=== PATIENT | male | born 1995 | race Caucasian/White ===

== ENCOUNTER 2021-01-14 17:47 | Emergency (ER) | payer MEDICAID, SELFPAY ==
[2021-01-14 18:00] VITALS: PULSE 103; RESP 16; TEMP 36.9; O2SAT 98; BMI 46.0
--- NOTE | 2021-01-14 18:08 | XRR_ITS ---
PROCEDURE INFORMATION: Exam: XR Right Knee Exam date and time: 01/14/2021 6:08 PM Age: 26 years old Clinical indication: Pain; Knee; Right; Additional info: Pain, swelling TECHNIQUE: Imaging protocol: XR Right knee. Views: 3 views. COMPARISON: No relevant prior studies available. FINDINGS: Bones/joints: Normal. No fracture or dislocation. Soft tissues: Normal. XR/XR knee RT 3V* [id number] IMPRESSION: No acute finding. Radiation Dose CTDIVOL = (mGy): DLP = (mGy-cm)
--- NOTE | 2021-01-14 18:08 | USR_ITS ---
PROCEDURE INFORMATION: Exam: US Duplex Right Lower Extremity Veins, Limited Exam date and time: 01/14/2021 6:08 PM Age: 26 years old Clinical indication: Pain; Leg, lower; Right; Additional info: Pain, swelling TECHNIQUE: Imaging protocol: Real-time Duplex ultrasound of the Right Lower Extremity with 2-D norris scale, color Doppler flow and spectral waveform analysis with image documentation. Limited exam was focused on the right lower extremity veins. COMPARISON: CR (LOW EXM, ) 01/14/2021 6:14 PM FINDINGS: Right deep veins: Unremarkable. The common femoral, femoral, proximal profunda femoral and popliteal veins are patent without thrombus. Normal Doppler waveforms. Normal compressibility and/or augmentation response. Right superficial veins: Unremarkable. Saphenofemoral junction is patent without thrombus. Soft tissues: Unremarkable. US/[place] [id number] IMPRESSION: No evidence of deep vein thrombosis. Radiation Dose CTDIVOL = (mGy): DLP = (mGy-cm)
[2021-01-14 20:00] VITALS: PULSE 100
--- NOTE | 2021-01-14 20:52 | W.ED.EXTPRO ---
HPI - Extremity Problem General: Chief complaint: Extremity Injury, Lower Stated complaint: R KNEE PAIN Time Seen by Provider: 01/14/21 20:30 History of Present Illness: HPI Narrative: 26-year-old male patient comes in today with complaints of right knee pain. Patient reports that about 2 weeks ago he was hit in the right knee by a forklift. Patient reports he had pain for a short while seem to have gotten better but then today started having more serious pain. Patient was concerned he may be developing a blood clot or have other significant injury. Patient appears well. No obvious swelling or redness is noted to the knee. Patient is guarded with extension of the knee due to discomfort. Review of Systems General: Reports: 10 or more systems reviewed and unremarkable except in HPI and below Musc: Reports: other (Right knee injury.) Physical Exam Const: COMMON NORMALS: no acute distress and patient oriented x3 GENERAL APPEARANCE: cooperative HENMT: COMMON NORMALS: normocephalic HEAD & SCALP: normal to inspection and normocephalic MOUTH: Normal oral and palatal mucosa present Eye: GENERAL EYE: appearance normal, both eyes and all related structures Neck/C-Spine: COMMON NORMALS: full ROM Chest: COMMONS NORMALS: normal inspection of the chest Resp: COMMON NORMALS: normal respiratory effort EFFORT & INSPECTION: Yes able to speak in complete sentences Cardio: COMMON NORMALS: regular rate and regular rhythm RATE: regular rate RHYTHM: regular rhythm GI: COMMON NORMALS: non-tender Back/Pelvis: COMMON NORMALS: thoracic and lumbar spine normal to inspection Extremity: NARRATIVE EXTREMITY EXAM: Tenderness is noted along the joint line of the lateral right knee. Minimal to no swelling is noted. Patient is guarded with any movement. No deformity is noted. Neuro: COMMON NORMALS: patient oriented x3 and moves all extremities Psych: COMMON NORMALS: mental status grossly normal and cooperative Skin: COMMON NORMALS: no rashes or lesions noted GENERAL SKIN EXAM: no rashes or lesions noted Course Vital Signs: Vital signs: Vital Signs Temperature 98.5 F 01/14/21 18:00 Pulse Rate 103 H 01/14/21 18:00 Respiratory Rate 16 01/14/21 18:00 Pulse Oximetry 98 01/14/21 18:00 MDM - Extremity (Nontraumatic) MDM Narrative: Medical decision making narrative: 26-year-old male comes in for evaluation of right knee injury. Patient is very tender to the distal aspect of the joint line on the lateral side of the right knee. Patient has decreased range of motion of the knee due to pain. No obvious swelling is noted. Distal pulses and sensation are intact. Differential diagnosis includes but not limited to joint effusion, fracture, meniscal injury. X-ray was negative for any fracture or dislocation. Recommended patient be followed by orthopedics for further evaluation of injury. We will put patient on some steroids to help with inflammation as this may just be an inflammatory response to his injury. I suspect though patient may have a meniscal injury although this cannot be ruled out without further imaging. We will start patient on prednisone 20 mg twice a day for 5 days, diclofenac for pain and inflammation, and hydrocodone 7 tablets for breakthrough pain. Review of the record indicated no recent prescriptions for hydrocodone. Patient reported understanding and agreed to plan. Case management was requested to assist with orthopedic follow-up. Discharge Plan Discharge Patient Disposition: Home Clinical Impression: Injury of right knee Qualifiers: Encounter type: initial encounter Qualified Code(s): S89.91XA - Unspecified injury of right lower leg, initial encounter Condition: Stable Prescriptions: New hydrocodone-acetaminophen 5-325 mg tablet 1 tab PO Q6H PRN (Reason: pain) Qty: 7 RF: 0 prednisone 20 mg tablet 20 mg PO BID 5 Days Qty: 10 RF: 0 diclofenac sodium 75 mg tablet,delayed release (DR/EC) 75 mg PO BID Qty: 10 RF: 0 Discharge Orders: Discharge ED (Routine); Ordered 01/14/21 Ordered By: Tejinder Farrell Discharge Diet: Usual diet Discharge Activity: Increase activity as tolerated Patient Instructions: Knee Pain (ED), Opioid Safety Activity Restrictions/Additional Instructions: Activity as tolerated. Gentle stretching and range of motion exercises. Use ice to the area for comfort. Drink plenty of water with medication. Follow-up with primary care for further instruction. Case management will contact you regarding follow-up appointment with orthopedics for further evaluation. 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
[2021-01-14] MEDS: predniSONE 20 mg Tablet 60 MG PO (21:05)
[2021-01-14] MEDS: HYDROcodone-acetaminophen 7.5-325 mg Tablet 1 TAB PO (21:05)
[2021-01-14 21:24] VITALS: BP 153/99; PULSE 103; RESP 24; O2SAT 95
--- NOTE | 2021-01-15 09:10 | DCPLANNER ---
senior online marketing manager had message to schedule a follow up appointment for patient with ortho. senior online marketing manager called the ortho clinic, spoke with Xin, gave clinic patients information. senior online marketing manager was told that patients information will be printed and reviewed. Clinic will call patient with appointment information.
--- NOTE | 2021-01-20 14:00 | DCPLANNER ---
Patient had a follow up appointment scheduled for 01.20.[address] Naranjo at [facility] - patient did attend appointment.
== END 2021-01-14 21:10 | disposition home or self-care (01) ==
PROVIDERS: Emergency Provider Nurse Practitioner Family
DX: S89.91XA Unspecified injury of right lower leg, initial encounter (principal); W24.0XXA Contact with lifting devices, not elsewhere classified, initial encounter
CPT/HCPCS: 73562; 93971; 99283; J7512

== ENCOUNTER → 2021-01-20 09:22 | Outpatient (BNVA) | payer MEDICAID, SELFPAY | PROVIDERS: Referring Provider Nurse Practitioner Family; Visit Provider Specialist | DX: S89.91XA Unspecified injury of right lower leg, initial encounter (principal); X58.XXXA Exposure to other specified factors, initial encounter | CPT/HCPCS: 73560; 73565 ==

== ENCOUNTER → 2021-11-08 11:48 | Outpatient (BNVA) | payer MEDICAID, SELFPAY | PROVIDERS: Visit Provider Nurse Practitioner | DX: I10 Essential (primary) hypertension (principal); M10.9 Gout, unspecified; F32.A Depression, unspecified | CPT/HCPCS: 80053; 80061; 84439; 84443; 84481; 84550; 85025 ==

== ENCOUNTER → 2021-12-27 14:45 | Outpatient (BNVA) | payer MEDICAID, SELFPAY | PROVIDERS: Visit Provider Nurse Practitioner | DX: F32.A Depression, unspecified (principal); K58.2 Mixed irritable bowel syndrome; I10 Essential (primary) hypertension; E78.2 Mixed hyperlipidemia; E03.9 Hypothyroidism, unspecified; M10.9 Gout, unspecified | CPT/HCPCS: 80053; 84443; 84550 ==

== ENCOUNTER 2022-01-26 02:25 | Emergency (ER) | payer MEDICAID, SELFPAY ==
[2022-01-26 02:27] VITALS: BP 136/70; PULSE 104; RESP 22; TEMP 36.7; O2SAT 97; BMI 43.6
--- NOTE | 2022-01-26 02:28 | XRR_ITS ---
PROCEDURE INFORMATION: Exam: XR Chest Exam date and time: 01/26/2022 3:49 AM Age: 27 years old Clinical indication: Chest pressure; Patient HX: C/O chest pain; Additional info: Cp TECHNIQUE: Imaging protocol: Radiologic exam of the chest. Views: 1 view. COMPARISON: No relevant prior studies available. FINDINGS: Lungs: Normal lung volumes. No interstitial or airspace opacities. Pleural spaces: No pleural effusion. No pneumothorax. Heart/Mediastinum: Normal heart size. Normal mediastinal contour. Midline trachea. Bones/joints: No acute abnormalities. XR/XR chest 1V portable [id number] IMPRESSION: No chest radiographic evidence of acute cardiopulmonary disease.
--- NOTE | 2022-01-26 02:31 | ECG_ITS ---
[facility] Test Date: 2022-01-26 Pat Name: Charanjit Choudhury Department: Room: Gender: Male Director Of Audiology: : 1995 Requested By: Allison Núñez Order Number: [id number] Luis MD: Jerad Thacker M.D. Measurements Intervals [place] Rate: 83 P: -21 NH: 100 QRS: 62 QRSD: 106 T: 69 QT: 389 QTc: 458 Interpretive Statements SINUS RHYTHM WITH SHORT NH INTERVAL No previous ECG available for comparison Electronically Signed On 01-28-2022 6:30:16 [employer] by Jerad Thacker M.D. [email or web address]
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
[2022-01-26] MEDS: midazolam 1 mg/mL INJ 2 mL 2 MG IVP (02:43)
[2022-01-26 02:44] LABS: Basophils % 0.3 %; Eosinophils % 0.3 %; Hematocrit 48.1 % (42.0-52.0); Hemoglobin 16.1 g/dL (11.7-16.6); Lymphocytes # 2.9 10^3/uL (0.8-4.8); Lymphocytes % 19.1 %; Mean Corpuscular HGB Conc 33.5 g/dL (30.0-36.0); Mean Corpuscular Volume 89.7 fl (80-94); Mean Platelet Volume 8.4 fL (7.4-10.4); Monocytes # 1.1 10^3/uL (0.2-0.9); Monocytes % 7.2 %; Neutrophils # 10.99 10^3/uL (1.8-7.7); Neutrophils % 72.7 %; Nucleated Red Blood Cells % 0 %; Platelet Count 414 10^3/cmm (130-400); Red Blood Count 5.36 10^6/uL (4.1-5.3); White Blood Count 15.1 10^3/uL (4.0-10.0)
[2022-01-26 02:47] VITALS: BP 141/68; PULSE 100; RESP 20; O2SAT 93
[2022-01-26] MEDS: sodium chloride 0.9% 1,000 ML 999 ML IV (02:56)
[2022-01-26 03:00] VITALS: BP 123/93; PULSE 96; RESP 22; O2SAT 96
[2022-01-26 03:00] LABS: Troponin(5th) Baseline 8 ng/L (0-15)
[2022-01-26 03:01] LABS: Alanine Aminotransferase 56 U/L (0-41); Alkaline Phosphatase 83 U/L (40-130); Anion Gap 18.5 (5-19); Aspartate Amino Transferase 33 U/L (0-40); Blood Urea Nitrogen 11 mg/dL (6-20); Calcium 9.9 mg/dL (8.5-10.5); Carbon Dioxide 26 mmol/L (22-29); Chloride 105 mmol/L (98-107); Globulin 2.3 g/dL (1.3-4.6); Glomerular Filtration Rate 66.2 mL/min (90-130); Glucose 98 mg/dL (65-115); Osmolality Calculated 301 mOsm/kg (285-295); Potassium 3.5 mmol/L (3.5-5.1); Sodium 146 mmol/L (136-145); Total Bilirubin 0.5 mg/dL (0.15-1.2); Total Protein 7.3 g/dL (6.6-8.7)
[2022-01-26 03:19] VITALS: BP 148/85; PULSE 87; RESP 22; O2SAT 97
[2022-01-26 03:31] VITALS: BP 114/83; PULSE 86; RESP 20; O2SAT 97
[2022-01-26 03:59] LABS: D Dimer 0.45 ug/mIFEU (0-0.59)
== END 2022-01-26 04:15 | disposition home or self-care (01) ==
PROVIDERS: Emergency Provider Emergency Medicine; PCP Nurse Practitioner
DX: R07.9 Chest pain, unspecified (principal); Z87.891 Personal history of nicotine dependence; I10 Essential (primary) hypertension; Z87.820 Personal history of traumatic brain injury
CPT/HCPCS: 71045; 80053; 84484; 85025; 85378; 93005; 96361; 96374; 99285; J2250; J7030